=== PATIENT | male | born 1990 | race Caucasian/White ===

== ENCOUNTER 2020-06-17 02:16 | Emergency (ER) | payer OTHER ==
[~2020-06-17] VITALS: Ht 180.3 cm; Wt 77.1 kg
[2020-06-17 02:17] VITALS: BP_SYST 159
--- NOTE | 2020-06-17 02:17 | NUR ---
Patient to ER bed hw1 for evaluation. Side rails up. Report given to Self. ER at bedside examining patient.
[2020-06-17] MEDS ORDERED: ACETAMINOPHEN 500 MG TABLET PO ONE (02:30)
[2020-06-17] MEDS ORDERED: ACETAMINOPHEN 500 MG TABLET ONE (02:35)
--- NOTE | 2020-06-17 02:36 | NUR ---
patient offered tylenol 1000mg po but refused, informed.
--- NOTE | 2020-06-17 03:14 | NUR ---
Patient given written and verbal discharge instructions and verbalizes understanding. ER MD discussed with patient the results and treatment provided. Patient in stable condition. Patient educated on pain management and to follow up with PMD. Pain Scale []. Opportunity for questions provided and answered. Medication side effect fact sheet provided. Accompanied w/ [employer] officers
== END 2020-06-17 03:14 ==
LOC: SED 02:16
DX: F10.129 Alcohol abuse with intoxication, unspecified (principal); M25.532 Pain in left wrist; Y90.9 Presence of alcohol in blood, level not specified
CPT/HCPCS: 99284